=== PATIENT | male | born 1940 ===

== ENCOUNTER 2017-12-19 10:19 | Day surgery (SDC) | payer MEDICARE, OTHER ==
[2017-12-11 09:33] VITALS: BMI 30.1
[2017-12-19] MEDS ORDERED: Lactated Ringer's 1,000 ML IV ONE ×3 (11:30→11:39)
[2017-12-19] MEDS: Iohexol 300 10 ML ONE ×2 (11:39→12:01)
[2017-12-19] MEDS: Lidocaine 2% MPF (5 ml) Inj ONE ×2 (11:39→12:00)
[2017-12-19] MEDS: Bupivacaine HCl 0.25% PF (30 ml) Inj ONE ×2 (11:40→12:02)
[2017-12-19] MEDS: methylPREDNISolone Depo 80 mg/ml Inj ONE ×2 (11:41→12:02)
[2017-12-19] MEDS ORDERED: Midazolam 2 MG/2 ML VIAL ONE (11:57)
[2017-12-19] MEDS ORDERED: Lactated Ringer's 1,000 ML IV SCH (12:30)
[2017-12-19 13:23] VITALS: RESP 18; O2SAT 98
[2017-12-19 13:46] VITALS: BP 116/67; PULSE 76; TEMP 97.2
--- NOTE | 2017-12-19 16:12 | RAD ---
Date of service: 12/19/2017 PROCEDURE: Lumbar epidural steroid injection HISTORY: PAIN MANAGEMENT COMPARISON: None TECHNIQUE: Standard protocol for this study/examination. FINDINGS: Total fluoroscopic time (continuous mode) utilized during the procedure 15.8 (seconds). Total exam DLP: 4.35 (mGy) IMPRESSION: Submitted images from the current procedure: 1.0
--- NOTE | 2017-12-19 20:24 | OP ---
Copied To: Edel Nichols MD Attending MD: Edel Nichols MD PROCEDURE DATE: 12/19/2017 PREOPERATIVE DIAGNOSIS: Lumbar radiculopathy. POSTOPERATIVE DIAGNOSIS: Lumbar radiculopathy. PROCEDURE: Right L4-L5 and L5-S1 transforaminal epidural steroid injection. ANESTHESIOLOGIST: Joel Renner MD SURGEON: Edel Nichols MD TYPE OF ANESTHESIA: Monitored anesthesia care. COMPLICATIONS: None. SPECIMENS: None. DESCRIPTION OF PROCEDURE: As follows: After we had discussion of the procedure with the patient including its risks, benefits, alternatives, outcome data, and possibility of no effect or increased pain, patient consented to the procedure. He denies any recent infection, bleeding tendencies, or being on anticoagulants. Decision was then made to proceed to the OR. Patient was placed on the fluoroscopy table in a prone position with two pillows underneath his abdomen. The back was prepped and draped in a usual sterile fashion and a sterile technique was adhered to during the entire procedure. The L4 and L5 vertebral levels were first identified in the anteroposterior view. Angulation towards the right at approximately 20 degrees was used to maximize the visualization of the right L4 and L5 pedicles. The skin overlying the 6 o'clock position of both pedicles was then infiltrated with 1% lidocaine using 25-gauge needle. Subsequently, a 22-gauge 3-1/2-inch spinal needle was then incrementally advanced under fluoroscopic guidance until the tip of needle walked into the intervertebral foramen. After satisfactory positioning of both needles, approximately 0.5 mL of Isovue contrast was injected showing appropriate epidural nerve root spread without any signs of CSF or intravenous involvement. At this point, approximately 3 mL of 0.25% Marcaine and Depo-Medrol mixture was injected. The needle was then removed and the patient's back was cleaned and dry bandages were applied. Patient was then transferred to the recovery area in good condition without any signs of [employer] toxicity or any neurological deficit. He will be following up in the office in approximately two to four weeks. Edel Nichols MD
== END 2017-12-19 14:00 | disposition home or self-care (01) ==
LOC: H.OPSURG 10:19
PROVIDERS: ATTEND Anesthesiology
DX: M54.16 Radiculopathy, lumbar region (principal); E11.9 Type 2 diabetes mellitus without complications; J45.909 Unspecified asthma, uncomplicated; I10 Essential (primary) hypertension; M19.90 Unspecified osteoarthritis, unspecified site
CPT/HCPCS: 64483; 64484; 82948; J1040; J2250; J3010; J7120; Q9967

== ENCOUNTER 2018-05-26 09:00 | Day surgery (SDC) | payer MEDICARE, OTHER ==
[2018-05-26 09:18] VITALS: BMI 22.4
[2018-05-26] MEDS ORDERED: Sodium Chloride 0.9% 500 ML IV STA (09:20)
--- NOTE | 2018-05-26 09:36 | ED PDOC ---
HPI: Back Time Seen by Provider: 05/26/18 09:17 Chief Complaint (Nursing): Back Pain Chief Complaint (Provider): Back Pain History Per: Patient History/Exam Limitations: no limitations Onset/Duration Of Symptoms: Persistent (x5 years) Current Symptoms Are (Timing): Still Present Additional Complaint(s): 77 year old male with pmHx of DM, HTN, and HCl, presents to ED for persistent lower, left-sided back pain for 5+ years. Patient states he called his pain management doctor then advised to go straight to ED. He additionally reports chronic numbness to his fingers and toes. Otherwise, he denies any falls, new injuries, nausea, vomiting, abdominal pain, change in bowel movements or urination. PCP: Dr. Driss Alegre Pain management: Dr. Jimi Nichols Past Medical History Reviewed: Historical Data, Nursing Documentation, Vital Signs - Medical History PMH: Asthma (NEVER HOSPITALIZED), Diabetes, HTN, Hypercholesterolemia, Hyperlipidemia, Peripheral Edema (OCCASSIONALLY) Denies: Chronic Kidney Disease - Family History Family History: States: Unknown Family Hx - Immunization History Hx Tetanus Toxoid Vaccination: No Hx Influenza Vaccination: Yes Hx Pneumococcal Vaccination: No - Home Medications Home Medications: Ambulatory Orders Medication Instructions Recorded Atorvastatin Calcium [Lipitor] 20 mg PO HS 12/09/12 RX: Albuterol HFA [Ventolin HFA 90 2 puff IH Q6 PRN 01/25/15 mcg/actuation (8 g)] Acetaminophen/Oxycodone Hydr 1 tab PO Q6 PRN 10/18/15 [Percocet 10/325 mg Tab] Losartan/Hydrochlorothiazide 1 tab PO DAILY 12/11/17 [Losartan-Hctz 100-25 mg Tab] RX: metFORMIN [glucOPHAGE] 850 mg PO BID 12/11/17 Ergocalciferol (Vitamin D2) 50,000 unit PO MO 05/26/18 [Vitamin D2] RX: Aspirin [Ecotrin] 81 mg PO DAILY 05/26/18 RX: Gabapentin [Neurontin] 400 mg PO Q8 05/26/18 - Allergies Allergies/Adverse Reactions: Allergies Allergy/AdvReac Type Severity Reaction Status Date / Time No Known Allergies Allergy Verified 12/19/17 10:53 Review of Systems ROS Statement: Except As Marked, All Systems Reviewed And Found Negative Gastrointestinal: Negative for: Nausea, Vomiting, Abdominal Pain, Diarrhea, Constipation Genitourinary Male: Negative for: Dysuria, Incontinence, Hematuria Musculoskeletal: Positive for: Back Pain (left lower) Neurological: Positive for: Numbness (fingers and toes chronically) Physical Exam - Reviewed Nursing Documentation Reviewed: Yes Vital Signs Reviewed: Yes - Physical Exam Appears: Positive for: No Acute Distress Head Exam: Positive for: ATRAUMATIC, NORMAL INSPECTION, NORMOCEPHALIC Skin: Positive for: Normal Color Eye Exam: Positive for: Normal appearance ENT: Positive for: Normal ENT Inspection Neck: Positive for: Normal Cardiovascular/Chest: Positive for: Regular Rate, Rhythm Respiratory: Positive for: Normal Breath Sounds. Negative for: Respiratory Distress Gastrointestinal/Abdominal: Positive for: Normal Exam, Soft. Negative for: Tenderness Back: Positive for: Other (+SLR bilaterally at 30 degrees). Negative for: Decreased ROM Extremity: Positive for: Normal ROM (upper/lower). Negative for: Pedal Edema, Calf Tenderness Neurologic/Psych: Positive for: Alert, Oriented. Negative for: Motor/Sensory Deficits - Progress ED Course And Treament: 1030: Dr. Nichols will admit to his service for eval and tx. Stable. Medical Decision Making Medical Decision Making: Time: 916 Initial Plan: * IV fluids Time: 918 --Patient declines pain medication when offered by provider. --Case discussed with Dr. Nichols. Requesting IV placement then he will come to bedside to administer injection. Scribe Attestation: Documented by Lina Bird, acting as a scribe for Farhat Adams MD. Provider Scribe Attestation: All medical record entries made by the Scribe were at my direction and personally dictated by me. I have reviewed the chart and agree that the record accurately reflects my personal performance of the history, physical exam, medical decision making, and the department course for this patient. I have also personally directed, reviewed, and agree with the discharge instructions and disposition. Disposition - Clinical Impression Clinical Impression: Back pain - Patient ED Disposition Is Patient to be Admitted: Yes Counseled Patient/Family Regarding: Diagnosis - Disposition Disposition Time: 13:04 Condition: FAIR - POA Present On Arrival: None
[2018-05-26] MEDS ORDERED: Iohexol 300 10 ML ONE (10:13)
[2018-05-26] MEDS ORDERED: MethylPREDNISolone Depo 40 mg/ml Inj ONE (10:13)
[2018-05-26] MEDS ORDERED: Bupivacaine HCl 0.25% PF (30 ml) Inj ONE (10:13)
[2018-05-26] MEDS ORDERED: Lidocaine 1% Inj (20ml) ONE (10:14)
[2018-05-26] MEDS ORDERED: Sodium Chloride 0.9% 500 ML IV ONE (10:45)
[2018-05-26] MEDS ORDERED: methylPREDNISolone Depo 80 mg/ml Inj IM ONE (10:50)
[2018-05-26] MEDS ORDERED: Bupivacaine HCl 0.25% PF (30 ml) Inj IJ ONE (10:50)
[2018-05-26] MEDS ORDERED: Lidocaine 1% Inj (20ml) IJ ONE (10:50)
[2018-05-26] MEDS ORDERED: Iohexol 300 10 ML IJ ONE (10:50)
--- NOTE | 2018-05-26 11:04 | CP.SDSHP ---
Same Day Surgery H & P - History Proposed Procedure: lumbar epidural Pre-Op Diagnosis: lumbar radiculopathy - Previous Medical/Surgical History Cardiac: Hypertension Endocrine/Metabolic: Diabetes - Allergies Allergies: Allergies No Known Allergies Allergy (Verified 12/19/17 10:53) - Physical Exam Vital Signs: Vital Signs 05/26/18 05/26/18 10:06 10:18 Temperature 98.4 F Pulse Rate 78 89 Respiratory 16 Rate Blood Pressure 142/82 O2 Sat by Pulse 96 Oximetry Neuro: WNL Heart: WNL Lungs: WNL - Impression Impression: Lumbar radiculopathy Pt. Evaluated Today:Candidate for Anesthesia & Procedure: Yes Short Stay Discharge - Short Stay Discharge Admitting Diagnosis/Reason for Visit: BACK PAIN Disposition: HOME/ ROUTINE
--- NOTE | 2018-05-26 11:05 | CP.SDSHP ---
Same Day Surgery H & P - Allergies Allergies: Allergies No Known Allergies Allergy (Verified 12/19/17 10:53) - Physical Exam Vital Signs: Vital Signs 05/26/18 05/26/18 10:06 10:18 Temperature 98.4 F Pulse Rate 78 89 Respiratory 16 Rate Blood Pressure 142/82 O2 Sat by Pulse 96 Oximetry Short Stay Discharge - Short Stay Discharge Admitting Diagnosis/Reason for Visit: BACK PAIN Disposition: HOME/ ROUTINE
[2018-05-26] MEDS ORDERED: Sodium Chloride 0.9% 1,000 ML IV PRN (11:09)
[2018-05-26] MEDS ORDERED: HYDROmorphone 0.5 mg/0.5 ml ISec IVP PRN (11:09)
[2018-05-26 13:02] VITALS: RESP 18
[2018-05-26 14:01] VITALS: BP 142/67; PULSE 78; TEMP 97.5; O2SAT 96
--- NOTE | 2018-05-26 15:33 | RAD ---
Date of service: 05/26/2018 PROCEDURE: Intraoperative Fluoroscopy. HISTORY: EPIDURAL FINDINGS: Fluoroscopic assistance was provided. Fluoroscopy time = 12.9 sec. Radiation dose = 6.14 mGy. Please refer to the operative report from LUCILA Contreras.
--- NOTE | 2018-05-26 22:11 | OP ---
PROCEDURE DATE: 05/26/2018 PREOPERATIVE DIAGNOSIS: Lumbar radiculopathy. POSTOPERATIVE DIAGNOSIS: Lumbar radiculopathy. PROCEDURE: Left L4-5, L5-S1 transforaminal epidural steroid injection. ANESTHESIOLOGIST: Dr. Coates. SURGEON: Edel Nichols MD ANESTHESIA TYPE: Monitored anesthesia care. COMPLICATIONS: None. SPECIMENS: None. DESCRIPTION OF PROCEDURE: After we had discussion of the procedure with the patient including its risks, benefits, alternatives, outcome data, possibility of no effect or increased pain, the patient consented to the procedure. He denies any recent infection, bleeding tendencies, or being on anticoagulants. A decision was then made to proceed to the OR. The patient was placed on a fluoroscopy table in a prone position with two pillows underneath his abdomen. The back was prepped and draped in a usual sterile fashion and a sterile technique was adhered to during the entire procedure. The L4 and L5 vertebral levels were first identified on the anterior-posterior view. Angulation towards the left at approximately 20 degrees was used to maximize the visualization of the left L4 and L5 pedicles. The skin overlying the 6 o'clock position of both pedicles was then infiltrated with 1% lidocaine using 25-gauge needle. Subsequently, a 22-gauge 3-1/2-inch spinal needle was incrementally advanced under fluoroscopic guidance until tip of the needle walked into the intervertebral foramen. After satisfactory position of both needles, approximately 0.5 mL of Isovue contrast was injected showing appropriate epidural and nerve root spread without any signs of CSF or intravenous involvement. At this point, approximately 3 mL of 0.25% Marcaine and Depo-Medrol mixture was injected. The needle was then removed. The patient's back was cleaned and dry bandages were applied. The patient was then transferred to the recovery area in good condition without any signs of [employer]ER toxicity or any neurological deficit. He will be following up in our office in approximately two to four weeks. Edel Nichols MD
== END 2018-05-26 13:50 | disposition home or self-care (01) ==
LOC: H.ER 09:00 → H.SDS 10:23
PROVIDERS: ATTEND Anesthesiology
DX: M54.16 Radiculopathy, lumbar region (principal); E11.9 Type 2 diabetes mellitus without complications; I10 Essential (primary) hypertension; E78.00 Pure hypercholesterolemia, unspecified; J45.909 Unspecified asthma, uncomplicated; Z79.82 Long term (current) use of aspirin; Z79.84 Long term (current) use of oral hypoglycemic drugs; Z79.899 Other long term (current) drug therapy
CPT/HCPCS: 64483; 64484; 82948; 99283; J1030; J1040; J3010; J7030; J7040; Q9967